=== PATIENT | female | born 1975 | race Caucasian/White ===

== ENCOUNTER 2018-01-09 19:57 | Emergency (ER) | payer MEDICAID ==
[2018-01-09 20:15] VITALS: BP 120/69
--- NOTE | 2018-01-09 20:23 | EDPHY ---
H & P Time Seen by Provider: 01/09/18 20:06 HPI/ROS: 42 yo F presents c/o " my right eye is injured". She states she was outside and about an hour ago thought she had gotten something in her eye, like an eyelash or a small bug , couldnt find anything but then noticed some mild redness and swelling to the outer edge of her right eye. No fever or chills, no drainage, no difficulty with her vision. Review of system as per hpi General no fever no chills no weakness HEENT no eye pain no eye discharge. pos slight eye redness, no sore throat Respiratory no cough, no shortness of breath Cardiac no chest pain, no peripheral edema GI no abdominal pain, no diarrhea, no constipation, no nausea, no vomiting no flank pain, no hematuria, no dysuria Musculoskeletal no myalgias, no joint pain Heme no easy bruising, no easy bleeding Endo no polyuria, no polydipsia Skin no rashes, no pruritus Neuro no syncope, no dizziness, no headaches Psych is no suicidal ideation, no homicidal ideation Past Medical/Surgical History: lasik lidocaine allergy depression Social History: no alcohol or drug use Smoking Status: Never smoked Physical Exam: 42 yo F alert and oriented in nad non toxic appearance at,nc eomi anicteric right eye- pupil reactive, no drainage, no visible fb -checked under upper lid and at lateral canthus multiple times lateral aspect of conjuctivae with small area of chemosis-raised gelatinous appearance translucent, slightly pink, no true erythema normal visual acuity 20/13. no resp distress gait intact Constitutional: Initial Vital Signs Temperature (C) 37 C 01/09/18 20:11 Heart Rate 66 01/09/18 20:11 Respiratory Rate 16 01/09/18 20:11 Blood Pressure 120/69 01/09/18 20:11 O2 Sat (%) 97 01/09/18 20:11 O2 Delivery Mode Room Air Allergies/Adverse Reactions: lidocaine Allergy (Verified 01/09/18 20:09) Home Medications: Medication Instructions Recorded Lamictal 04/05/11 Control Pill 01/09/18 Venlafaxine Xr [Effexor Xr 75MG 01/09/18 (*)] Medical Decision Making ED Course/Re-evaluation: Pt seen and evaluated for right eye complaint Imp Chemosis, right lateral conjunctiva Plan Home cool compresses recc allergy eye drops additionally suggest cetririzine Differential Diagnosis: Differential diagnosis considered but not limited to: bacterial conjunctivitis, viral conjuctivitis, chemosis, allergic conjunctivitis , eye foreign body, stye, chalazion Departure - Departure Disposition: Home, Routine, Self-Care Clinical Impression: Chemosis of conjunctiva Condition: Good Instructions: Conjunctivitis (ED) Additional Instructions: Cool compresses, Visine A eye drops - 4 times a day May take a medicine such as cetirizine, loratadine, diphenhydramine for seasonal allergy symptoms. If you are eye is not dramatically improving within the next 24-48 hours I would recommend follow-up with the overhead foreman. Referrals: NONE *PRIMARY CARE P,. [Primary Care Provider] - As per Instructions Leyla Beckett MD [Medical Doctor] - As per Instructions
[2018-01-09] MEDS ORDERED: NAPHAZOLINE HCL/PHENIR 15 ML OPHT.BTL RTEYE ONE (20:31)
== END 2018-01-09 20:35 | disposition home or self-care (01) ==
LOC: CED 19:57
DX: H11.421 Conjunctival edema, right eye (principal)

== ENCOUNTER 2018-04-12 09:36 | Emergency (ER) | payer MEDICAID ==
[2018-04-12 10:01] VITALS: BP 124/59
[2018-04-12] MEDS ORDERED: ALBUTEROL INH PREPACK MDI TAKEHOME ONE (10:10)
--- NOTE | 2018-04-12 10:10 | EDPHY ---
H & P Stated Complaint: cough,dyspnea for 5 days Time Seen by Provider: 04/12/18 09:57 HPI/ROS: CHIEF COMPLAINT: Cough, sinus congestion HISTORY OF PRESENT ILLNESS: The patient is a 43-year-old female who comes to the emergency department complaining of a dry cough and mild sinus congestion for the last week. She thinks that the smoke in the air is affecting her. She has no significant past medical history. No shortness of breath. No chest pain. She had a fever yesterday but it resolved with natural medications. Her daughter is here with similar complaints. Her other daughter had similar symptoms last week which no resolved. Severity: Moderate Modifying factors: Whether REVIEW OF SYSTEMS: Constitutional: denies: chills, fever, recent illness, recent injury EENTM: See HPI Respiratory: See HPI Cardiac: denies: chest pain, irregular heart rate, lightheadedness, palpitations Gastrointestinal/Abdominal: denies: abdominal pain, diarrhea, nausea, vomiting, blood streaked stools Genitourinary: denies: dysuria, frequency, hematuria, pain Musculoskeletal: denies: joint pain, muscle pain Skin: denies: lesions, rash, jaundice, bruising Neurological: denies: headache, numbness, paresthesia, tingling, dizziness, weakness Hematologic/Lymphatic: denies: blood clots, easy bleeding, easy bruising Immunologic/allergic: denies: HIV/AIDS, transplant EXAM: GENERAL: Well-appearing, well-nourished and in no acute distress. HEAD: Atraumatic, normocephalic. EYES: Pupils equal round and reactive to light, extraocular movements intact, sclera anicteric, conjunctiva are normal. ENT: TMs normal, nares patent, oropharynx clear without exudates. Moist mucous membranes. NECK: Normal range of motion, supple without lymphadenopathy or JVD. LUNGS: Breath sounds clear to auscultation bilaterally and equal. No wheezes rales or rhonchi. HEART: Regular rate and rhythm without murmurs, rubs or gallops. ABDOMEN: Soft, nontender, normoactive bowel sounds. No guarding, no rebound. No masses appreciated. BACK: No CVA tenderness, no spinal tenderness, step-offs or deformities EXTREMITIES: Normal range of motion, no pitting or edema. No clubbing or cyanosis. NEUROLOGICAL: Cranial nerves II through XII grossly intact. Normal speech, normal gait. 5/5 strength, normal movement in all extremities, normal sensation , normal reflexes PSYCH: Normal mood, normal affect. SKIN: Warm, dry, normal turgor, no visible rashes or lesions. Source: Patient, Family Exam Limitations: No limitations - Personal History LMP (Females 10-55): Extended Cycle BCP/Inj Current Tetanus Diphtheria and Acellular Pertussis (TDAP): Yes Tetanus Vaccine Date: 2012 - Medical/Surgical History Hx Asthma: No Hx Chronic Respiratory Disease: No Hx Diabetes: No Hx Cardiac Disease: Yes Hx Renal Disease: No Hx Cirrhosis: No Hx Alcoholism: No Hx HIV/AIDS: No Hx Splenectomy or Spleen Trauma: No Other PMH: neurocardiogenic syncope, psoriasis, Lasik surgery 15 yrs ago - Family History Significant Family History: No pertinent family hx - Social History Smoking Status: Never smoked Alcohol Use: None Constitutional: Initial Vital Signs Temperature (C) 36.7 C 04/12/18 09:55 Heart Rate 86 04/12/18 09:55 Respiratory Rate 16 04/12/18 09:55 Blood Pressure 124/59 H 04/12/18 09:55 O2 Sat (%) 97 04/12/18 09:55 O2 Delivery Mode Room Air Allergies/Adverse Reactions: lidocaine Allergy (Verified 04/12/18 09:54) Home Medications: Medication Instructions Recorded Lamictal 04/05/11 Control Pill 01/09/18 Venlafaxine Xr [Effexor Xr 75MG 01/09/18 (*)] Promethazine HCl/Codeine 5 ml PO Q4-6PRN PRN #90 ml 04/12/18 [Prometh-Codein 6.25-10 mg/5 ml] Medical Decision Making ED Course/Re-evaluation: The patient is well appearing. She has a mild dry cough. We discussed possible etiologies. I suspect that this is likely viral. The patient agrees. She would like to avoid antibiotics if possible. I will start her on cough syrup as well as an albuterol inhaler as needed. She understands and agrees with this plan. She declines further workup or testing. We discussed indications for returning she is not feeling better. Differential Diagnosis: Partial list of the Differential diagnosis considered include but were not limited to; upper respiratory tract infection, bronchitis, pneumonia and although unlikely based on the history and physical exam, I also considered sepsis, PE, acute coronary disease, COPD. I discussed these differential diagnoses and the plan with the patient as well as the usual and expected course. The patient understands that the diagnosis is provisional and that in medicine we are not always correct and that further workup is often warranted. Usual and customary warnings were given. All of the patient's questions were answered. The patient was instructed to return to the emergency department should the symptoms at all worsen or return, otherwise to followup with the physician as we discussed. - Data Points Medications Given: Discontinued Medications Albuterol Sulfate (Proventil Inh Prepack) 1 mdi MALIKA FINCH ONE Stop: 04/12/18 10:11 Last Admin: 04/12/18 10:32 Dose: 1 mdi Departure - Departure Disposition: Home, Routine, Self-Care Clinical Impression: Upper respiratory tract infection Qualifiers: URI type: unspecified viral URI Qualified Code(s): J06.9 - Acute upper respiratory infection, unspecified Condition: Fair Instructions: Albuterol (By breathing), Upper Respiratory Infection (ED) Referrals: Aleida Wall MD [Primary Care Provider] - As per Instructions Prescriptions: Promethazine HCl/Codeine [Prometh-Codein 6.25-10 mg/5 ml] 5 ml PO Q4-6PRN PRN # 90 ml PRN Reason: Cough, Moderate
== END 2018-04-12 10:38 | disposition home or self-care (01) ==
LOC: CED 09:36
DX: J06.9 Acute upper respiratory infection, unspecified (principal)

== ENCOUNTER 2018-08-05 16:49 | Emergency (ER) | payer MEDICAID ==
--- NOTE | 2018-08-05 17:21 | EDPHY ---
H & P Stated Complaint: cough and fever that started today. Time Seen by Provider: 08/05/18 17:11 HPI/ROS: CHIEF COMPLAINT: Sore throat, dry cough HISTORY OF PRESENT ILLNESS: The patient is a 43-year-old female who comes here with both of her daughters who are both sick as well. The patient complains of a sore throat and sinus congestion and dry cough for the last 2 days. Also low- grade fever tactile. 1 of her daughters was diagnosed with strep throat on strep swab 3 days ago. 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 Severity: Moderate Modifying factors: Improves with Tylenol and ibuprofen REVIEW OF SYSTEMS: Constitutional: See HPI EENTM: See HPI Respiratory: See HPI Cardiac: denies: chest pain, irregular heart rate, lightheadedness, palpitations Gastrointestinal/Abdominal: denies: abdominal pain, diarrhea, nausea, vomiting, blood streaked stools Genitourinary: denies: dysuria, frequency, hematuria, pain Musculoskeletal: denies: joint pain, muscle pain Skin: denies: lesions, rash, jaundice, bruising Neurological: denies: headache, numbness, paresthesia, tingling, dizziness, weakness Hematologic/Lymphatic: denies: blood clots, easy bleeding, easy bruising Immunologic/allergic: denies: HIV/AIDS, transplant 10 systems reviewed and negative except as noted EXAM: GENERAL: Well-appearing, well-nourished and in no acute distress. HEAD: Atraumatic, normocephalic. EYES: Pupils equal round and reactive to light, extraocular movements intact, sclera anicteric, conjunctiva are normal. ENT: TMs normal, nares patent, oropharynx clear without exudates. Moist mucous membranes. NECK: Normal range of motion, supple without lymphadenopathy or JVD. LUNGS: Breath sounds clear to auscultation bilaterally and equal. No wheezes rales or rhonchi. HEART: Regular rate and rhythm without murmurs, rubs or gallops. ABDOMEN: Soft, nontender, normoactive bowel sounds. No guarding, no rebound. No masses appreciated. BACK: No CVA tenderness, no spinal tenderness, step-offs or deformities EXTREMITIES: Normal range of motion, no pitting or edema. No clubbing or cyanosis. NEUROLOGICAL: Cranial nerves II through XII grossly intact. Normal speech, normal gait. 5/5 strength, normal movement in all extremities, normal sensation , normal reflexes PSYCH: Normal mood, normal affect. SKIN: Warm, dry, normal turgor, no visible rashes or lesions. Source: Patient Exam Limitations: No limitations - Personal History LMP (Females 10-55): 22-28 Days Ago Current Tetanus Diphtheria and Acellular Pertussis (TDAP): No Tetanus Vaccine Date: 2012 - Medical/Surgical History Hx Asthma: No Hx Chronic Respiratory Disease: No Hx Diabetes: No Hx Cardiac Disease: Yes Hx Renal Disease: No Hx Cirrhosis: No Hx Alcoholism: No Hx HIV/AIDS: No Hx Splenectomy or Spleen Trauma: No Other PMH: neurocardiogenic syncope, psoriasis, Lasik surgery 15 yrs ago - Family History Significant Family History: No pertinent family hx - Social History Smoking Status: Never smoked Alcohol Use: None Constitutional: Initial Vital Signs Temperature (C) 36.7 C 08/05/18 17:13 Heart Rate 80 08/05/18 17:13 Respiratory Rate 18 08/05/18 17:13 Blood Pressure 127/81 H 08/05/18 17:13 O2 Sat (%) 97 08/05/18 17:13 O2 Delivery Mode Room Air Allergies/Adverse Reactions: lidocaine Allergy (Verified 08/05/18 16:55) Home Medications: Medication Instructions Recorded Lamictal 04/05/11 Control Pill 01/09/18 Venlafaxine Xr [Effexor Xr 75MG 01/09/18 (*)] Medical Decision Making ED Course/Re-evaluation: The patient is well appearing overall. I will test her for flu. If this is negative I will likely treat her for strep because of her exposure to her daughter with strep throat. I will treat the patient for strep throat because of her exposure in symptoms. Her influenza test is negative. She requests shot. She states that the pills give her diarrhea. Differential Diagnosis: Partial list of the Differential diagnosis considered include but were not limited to; viral syndrome, influenza, strep throat and although unlikely based on the history and physical exam, I also considered pneumonia, sepsis. I discussed these differential diagnoses and the plan with the patient as well as the usual and expected course. The patient understands that the diagnosis is provisional and that in medicine we are not always correct and that further workup is often warranted. Usual and customary warnings were given. All of the patient's questions were answered. The patient was instructed to return to the emergency department should the symptoms at all worsen or return, otherwise to followup with the physician as we discussed. - Data Points Medications Given: Discontinued Medications Penicillin G Benzathine (Bicillin L-A) 1,200,000 unit IM EDNOW ONE PRN Reason: Protocol Stop: 08/05/18 19:15 Last Admin: 08/05/18 19:34 Dose: 1,200,000 unit Departure - Departure Disposition: Home, Routine, Self-Care Clinical Impression: Strep throat Condition: Fair Instructions: Strep Throat (ED) Referrals: Aleida Wall MD [Medical Doctor] - 2-3 days, if not improved
[2018-08-05] MEDS ORDERED: BICILLIN L-A 1200000 UNIT/2 ML SYRINGE IM ONE (19:14)
[2018-08-05 19:42] VITALS: BP 122/84
== END 2018-08-05 19:49 | disposition home or self-care (01) ==
LOC: CED 16:49
DX: J02.0 Streptococcal pharyngitis (principal)
CPT/HCPCS: J0561